=== PATIENT | female | born 1960 | race Caucasian/White ===

== ENCOUNTER 2025-05-07 09:36 | Emergency (ER) | payer OTHER ==
[~2025-05-07] VITALS: Ht 170.1 cm; Wt 65.8 kg
[~2025-05-07 09:36] MED LIST: AMOX-CLAV 875-1 EACH PO
[2025-05-07] MEDS ORDERED: Rabies Vaccine 1 ML VIAL IM ONE (10:05)
== END 2025-05-07 09:53 | disposition home or self-care (01) ==
LOC: ED 09:36
DX: T14.8XXD Other injury of unspecified body region, subsequent encounter (principal); Z79.899 Other long term (current) drug therapy; W55.51XD Bitten by raccoon, subsequent encounter

== ENCOUNTER 2025-05-11 15:10 | Emergency (ER) | payer OTHER ==
[~2025-05-11] VITALS: Ht 170.1 cm; Wt 65.8 kg
[2025-05-11] MEDS ORDERED: Rabies Vaccine 1 ML VIAL IM ONE (15:15)
== END 2025-05-11 15:40 | disposition home or self-care (01) ==
LOC: ED 15:10
DX: S91.351D Open bite, right foot, subsequent encounter (principal); Z79.899 Other long term (current) drug therapy; W54.0XXD Bitten by dog, subsequent encounter

== ENCOUNTER 2025-05-18 15:06 | Emergency (ER) | payer OTHER ==
[~2025-05-18] VITALS: Ht 170.1 cm; Wt 65.8 kg
[2025-05-18] MEDS ORDERED: Rabies Vaccine 1 ML VIAL IM ONE (15:30)
== END 2025-05-18 16:00 | disposition home or self-care (01) ==
LOC: ED 15:06
DX: T14.8XXD Other injury of unspecified body region, subsequent encounter (principal); Z79.899 Other long term (current) drug therapy; W55.51XD Bitten by raccoon, subsequent encounter